=== PATIENT | female | born 1995 | race Caucasian/White ===

== ENCOUNTER 2016-12-22 16:20 | Emergency (ER) ==
[2016-12-22 16:32] VITALS: BP 127/79; TEMP 97.1; BMI 44.6
[2016-12-22 17:10] LABS: BILIRUBIN,URINE Negative (NEGATIVE); KETONES,URINE Negative (NEGATIVE); LEUKOCYTE ESTERASE ,URINE 1+ (NEGATIVE); NITRITE,URINE Negative (NEGATIVE); PROTEIN,URINE Negative (NEGATIVE); URINE, BLOOD Trace-intact (NEGATIVE)
--- NOTE | 2016-12-22 17:11 | ED.PDOC ---
General ED Provider: Dr. MARY RODGERS Chief Complaint: Back Pain Stated Complaint: Back pain - feels like a back strain - yesterday. 12 week . No urinary sx; no fever chills or sweats. No precipitating events or changes in activities. Time Seen by Physician: 17:05 Mode of Arrival: Walk-In Information Source: Patient Exam Limitations: No limitations Primary Care Provider: JOSIE CHERRY Nursing and Triage Documentation Reviewed and Agree: Yes Review of Systems - Review Of Systems Constitutional: Reports: No symptoms Respiratory: Reports: No symptoms Cardiac: Reports: No symptoms Musculoskeletal: Reports: Back pain (Left lower back) All Other Systems: Reviewed and Negative Past Medical History - Past Medical History Previously Healthy: Yes Endocrine: Reports: None Cardiovascular: Reports: None Respiratory: Reports: None Hematological: Reports: None Gastrointestinal: Reports: None Genitourinary: Reports: None Neuro/Psych: Reports: Depression Musculoskeletal: Reports: None Cancer: Reports: None Last Menstrual Period: september 28 2016 - Surgical History General Surgical History: Reports: Appendectomy - Family History Family History: Reports: Unknown - Social History Smoking Status: Former smoker Hx Substance Use: No Alcohol Screening: None Physical Exam - Physical Exam Appearance: Well-appearing, Obese Pain Distress: Mild (only noted with Left straight leg raising) Respiratory: Airway patent, Respirations nonlabored GI/: Soft, Nontender Musculoskeletal: ROM intact (Positive L SLR at 40 degrees hip flexion; R SLR unremarkable) Skin: Warm, Dry, Normal color Neurological: Sensation intact, Motor intact, Alert, Oriented Psychiatric: Affect appropriate, Mood appropriate Critical Care Note - Critical Care Note Total Time (mins): 10 Course - Course Orders, Labs, Meds: Lab Review 12/22/16 16:40 Urine Color Yellow Urine Clarity Clear Urine pH 7.0 Ur Specific [place] 1.020 Urine Protein Negative Urine Glucose (UA) Negative Urine Ketones Negative Urine Blood Trace-intact Urine Nitrite Negative Urine Bilirubin Negative Urine Urobilinogen 1.0 Ur Leukocyte Esterase 1+ Urine Microscopic RBC 2-5 Urine Microscopic WBC 20-30 Ur Squamous Epith Cells 5-10 Urine Bacteria 1+ Orders Category Date Time Status URINALYSIS C & S IF INDICATED Stat LAB 12/22/16 16:40 Completed URINE CULTURE Stat LAB 12/22/16 17:13 Received Vital Signs: Temp Pulse Resp BP Pulse Ox 12/22/16 16:22 97.1 F L 84 18 127/79 97 Departure - Departure Time of Disposition: 17:22 Disposition: HOME SELF-CARE Discharge Problem: Urinary tract infection Instructions: Urinary Tract Infection in (ED) Condition: Good Pt referred to PMD for follow-up: Yes (Call for appointment) Additional Instructions: Take antibiotic as prescribed (Amoxicillin - has had without reaction or problems before). Follow up with [facility] as planned next week for OB. Follow up with primary care for medical issues such as the urinary tract infection. Return to ER if worsening meanwhile or running fever of 101.5 or higher. Prescriptions: Amoxicillin [Amoxil] 500 mg PO TID #30 capsule Allergies/Adverse Reactions: Allergies cefaclor [From [facility]] Adverse Reaction (Verified 12/22/16 16:28) Home Medications: Ambulatory Orders Fluoxetine HCl [Prozac] 40 mg PO DAILY 02/27/16 Amoxicillin [Amoxil] 500 mg PO TID #30 capsule 12/22/16 Vit W-Ca,Fe,FA(<1 mg) [ Vitamins] 1 tab PO DAILY 12/22/16 Disposition Discussed With: Patient
[2016-12-22 17:12] LABS: ADD URINE MICROSCOPIC YES
[2016-12-22 17:13] LABS: BACTERIA,URINE 1+ (NOT PRESENT)
== END 2016-12-22 17:43 | disposition home or self-care (01) ==
LOC: ED 16:20
DX: O23.41 Unspecified infection of urinary tract in pregnancy, first trimester (principal)
CPT/HCPCS: 81001; 87086; 99283